=== PATIENT | female | born 1975 | race Caucasian/White ===

== ENCOUNTER → 2020-12-28 | Outpatient (CLI) | payer BC ==
[~2020-12-28] MED LIST: ACET-789 PO; ALPR1TAB2 PO; DOCU100C37 PO; IBUP-1780 PO; TEMA30CA PO
--- NOTE | 2020-12-28 14:52 | Diagnostic Imaging Report ---
INDICATION: Right upper arm pain. FINDINGS: Two views of the right humerus show no fracture or dislocation. IMPRESSION: Negative right humerus. Dictated by: Dictated on workstation # [id number]
--- NOTE | 2020-12-28 14:54 | Diagnostic Imaging Report ---
INDICATION: Right shoulder pain. FINDINGS: Three views of the right shoulder show no fracture, dislocation, or other acute abnormalities. IMPRESSION: Negative right shoulder. Dictated by: Dictated on workstation # [id number]
== END ==
LOC: RAD FS 13:18
PROVIDERS: ATTEND Pediatrics
DX: M25.511 Pain in right shoulder (principal)
CPT/HCPCS: 73030; 73060

== ENCOUNTER 2021-06-14 18:10 | Emergency (ER) | payer BC ==
[~2021-06-14] VITALS: Ht 162.5 cm; Wt 90.0 kg
--- NOTE | 2021-06-14 19:18 | Diagnostic Imaging Report ---
INDICATION: Cough COMPARISON: None. FINDINGS: Frontal and lateral views the chest demonstrate clear lungs bilaterally. The heart size is normal. There is no pneumothorax. Osseous structures are normal. IMPRESSION: No acute findings. Normal chest. Dictated by: Dictated on workstation # [id number]
[2021-06-14 19:22] LABS: HEMATOCRIT 43 % (35-52); HEMOGLOBIN 14.3 G/DL (11.5-16.0); MEAN CORPUSCULAR HEMOGLOBIN 31 PG (25-34); MEAN CORPUSCULAR HGB CONC 34 G/DL (32-36); MEAN CORPUSCULAR VOLUME 93 FL (80-99); MEAN PLATELET VOLUME 9.9 FL (7.4-10.4); PLATELET COUNT 169 10^3/uL (130-400); WHITE BLOOD COUNT 3.5 10^3/uL (4.3-11.0)
[2021-06-14 19:23] LABS: BASOPHILS % (AUTO) 1 % (0-10); EOSINOPHILS % (AUTO) 1 % (0-10); LYMPHOCYTES # (AUTO) 1.2 X 10^3 (1.0-4.0); LYMPHOCYTES % (AUTO) 35 % (12-44); MONOCYTES # (AUTO) 0.4 X 10^3 (0.0-1.0); MONOCYTES % (AUTO) 11 % (0-12); NEUTROPHILS # (AUTO) 1.8 X 10^3 (1.8-7.8); NEUTROPHILS % (AUTO) 53 % (42-75)
[2021-06-14 19:35] LABS: ALANINE AMINOTRANSFERASE 21 U/L (0-55); ALBUMIN 4.6 GM/DL (3.2-4.5); ALKALINE PHOSPHATASE 124 U/L (40-136); BILIRUBIN,TOTAL 0.2 MG/DL (0.1-1.0); BUN/CREATININE RATIO 9; CALCIUM 9.4 MG/DL (8.5-10.1); CARBON DIOXIDE 24 MMOL/L (21-32); CHLORIDE 103 MMOL/L (98-107); CREATININE SERUM 0.78 MG/DL (0.60-1.30); GFR ESTIMATED 79; GLUCOSE 108 MG/DL (70-105); POTASSIUM 4.3 MMOL/L (3.6-5.0); SODIUM 138 MMOL/L (135-145); TOTAL PROTEIN 7.8 GM/DL (6.4-8.2)
[2021-06-14] MEDS ORDERED: NS IV 1000 ML 1,000 ML IV STA (19:49)
[2021-06-14] MEDS ORDERED: IOHEXOL 350 MG/ML 100 ML (OMNIPAQUE 350) VIAL IV ONE (20:00)
[2021-06-14] MEDS ORDERED: NS 100 ML (IVPB) BAG IV ONE (20:00)
[2021-06-14] MEDS ORDERED: HOLD METFORMIN - RECEIVED CONTRAST 20 ML VIAL IV SCH (20:00)
[2021-06-14] MEDS ORDERED: ONDANSETRON 4 MG/2 ML (SDV) Z0FRAN IVP ONE (20:30)
--- NOTE | 2021-06-14 20:36 | Diagnostic Imaging Report ---
PROCEDURE: CT angiography of the chest with contrast. TECHNIQUE: Multiple contiguous axial images were obtained through the chest after uneventful bolus administration of intravenous contrast. 3D reconstructed CTA MIP acquisitions were also performed. Auto Exposure Controls were utilized during the CT exam to meet ALARA standards for radiation dose reduction. INDICATION: Shortness of breath, elevated D-dimer The lungs are clear. There are no effusions or pneumothoraces. There is no right ventricular strain. There are no pulmonary emboli. There is no hilar or mediastinal lymphadenopathy. The aorta is unremarkable. IMPRESSION: Unremarkable CTA chest. Dictated by: Dictated on workstation # [id number]
[2021-06-14] MEDS ORDERED: predniSONE 20 MG TAB PO ONE (20:45)
[2021-06-14] MEDS ORDERED: RX-ALBUTEROL INHALER 8.5 GM HFA (PROAIR) IH STA (20:45)
--- NOTE | 2021-06-14 20:52 | ED Respiratory ---
General Chief Complaint: Cough/Cold/Flu Symptoms Stated Complaint: DIZZY,CHILLS,COUGH Nursing Triage Note: PATIENT PRESENTS TO THE ED WITH C/O COUGH, DIZZINESS, AND SHORTNESS OF BREATH. PATIENT REPORTS SHE TESTED + FOR COVID ON April AND WAS RELEASED FROM [facility]. HER CURRENT SYMPTOMS BEGAN ON May. PATIENT REPORTS SEVERE DIZZINESS WHEN STANDING AND INCREASED CHEST TIGHTNESS WHEN SHE LEANS BACK. Source: patient Exam Limitations: no limitations History of Present Illness Date Seen by Provider: Jun 14, 2021 Time Seen by Provider: 19:00 Initial Comments Here with report of increasing cough and dizziness and shortness of breath. Also notes that she has had diarrhea for several days. She states that she may suffer from irritable bowel syndrome. Notes that anytime that she stands she gets dizzy and feels weaker. Did have Covid infection on May 20 and was released from isolation on 31 May. Notes that she had return of cough over the last few days with the dizziness. Denies chest pain. Does have family history of pulmonary emboli. Denies pain in her legs. Timing/Duration: getting worse, other (Few days) Severity: moderate Prior Episodes/Possible Cause: no prior episodes Modifying Factors: Worse With Activity; Improves With Rest Associated Symptoms: cough; No fever/chills, No nasal congestion; shortness of breath, wheezing Allergies and Home Medications Allergies Coded Allergies: No Known Drug Allergies (Unverified , 01/18/16) Home Medications Acetaminophen with Codeine 1 Each Tablet, 1 EACH PO every 4 hours PRN for when necessary pain Prescribed by: REID FORD on 01/21/16 0809 Alprazolam 1 Mg Tablet, 1 MG PO PRN, (Reported) Docusate Sodium 100 Mg Capsule, 100 MG PO BID Prescribed by: REID FORD on 01/21/16 0809 Ibuprofen 800 Mg Tablet, 800 MG PO Q6HR Prescribed by: REID FORD on 01/21/16 0809 Prednisone 20 Mg Tab, 40 MG PO DAILY Prescribed by: THEO BASS on 06/14/212058 Promethazine HCl/Codeine 473 Ml Syrup, 5 ML PO Q6H PRN for COUGH Prescribed by: THEO BASS on 06/14/212099 Temazepam 30 Mg Capsule, 30 MG PO DAILY, (Reported) Patient Home Medication List Home Medication List Reviewed: Yes Review of Systems Review of Systems Constitutional: see HPI; No chills, No fever EENTM: see HPI Respiratory: see HPI Cardiovascular: No chest pain, No edema Gastrointestinal: diarrhea; No nausea, No vomiting Genitourinary: no symptoms reported : No Musculoskeletal: no symptoms reported Skin: no symptoms reported Psychiatric/Neurological: Denies Headache; Other (Dizziness) All Other Systems Reviewed Negative Unless Noted: Yes Past Qlcjnoy-Tznnkt-Pxasbp Hx Patient Social History Tobacco Use?: No Use of E-Cig and/or Vaping dev: No Substance use?: No Alcohol Use?: Yes Pt feels they are or have been: No Past Medical History Surgeries: Yes Hysterectomy Respiratory: No Cardiac: No Neurological: No Reproductive Disorders: Yes Female Reproductive Disorders: Menstrual Problems HIV/AIDS: No Gastrointestinal: Yes Gastroesophageal Reflux, Irritable Bowel Loss of Vision: Bilateral Psychosocial: Yes Anxiety Adverse Reaction/Blood Tranf: No Family Medical History Reviewed and Corrections made Physical Exam Vital Signs - First Documented 06/14/21 06/14/21 18:15 18:48 Temp 37.1 Pulse 100 Resp 24 B/P (MAP) 135/90 (105) Pulse Ox 96 O2 Delivery Room Air Capillary Refill : Less Than 3 Seconds Height: 5'4.00" Weight: 189lbs. oz. 85.271990ru; 34.00 BMI Method: General Appearance: WD/WN, no apparent distress HEENT: PERRL/EOMI, pharynx normal Neck: full range of motion, supple Respiratory: lungs clear, normal breath sounds Cardiovascular: no murmur, tachycardia Gastrointestinal: soft, tenderness (Upper abdominal musculature that is worse with coughing) Extremities: non-tender, normal inspection, no pedal edema, no calf tenderness Neurologic/Psychiatric: alert, oriented x 3 Skin: normal color, warm/dry Progress/Results/Core Measures Suspected Sepsis SIRS Temperature: Pulse: 100 Respiratory Rate: 24 Laboratory Tests 06/14/21 18:48: White Blood Count 3.5L Blood Pressure 135 /90 Mean: 105 Laboratory Tests 06/14/21 18:48: Creatinine 0.78, Platelet Count 169, Total Bilirubin 0.2 Results/Orders Lab Results Laboratory Tests Test 06/14/21 18:48 Range/Units White Blood Count 3.5 L 4.3-11.0 10^3/uL Red Blood Count 4.55 4.35-5.85 10^6/uL Hemoglobin 14.3 11.5-16.0 G/DL Hematocrit 43 35-52 % Mean Corpuscular Volume 93 80-99 FL Mean Corpuscular Hemoglobin 31 25-34 PG Mean Corpuscular Hemoglobin Concent 34 32-36 G/DL Red Cell Distribution Width 12.7 10.0-14.5 % Platelet Count 169 130-400 10^3/uL Mean Platelet Volume 9.9 7.4-10.4 FL Immature Granulocyte % (Auto) 0 % Neutrophils (%) (Auto) 53 42-75 % Lymphocytes (%) (Auto) 35 12-44 % Monocytes (%) (Auto) 11 0-12 % Eosinophils (%) (Auto) 1 0-10 % Basophils (%) (Auto) 1 0-10 % Neutrophils # (Auto) 1.8 1.8-7.8 X 10^3 Lymphocytes # (Auto) 1.2 1.0-4.0 X 10^3 Monocytes # (Auto) 0.4 0.0-1.0 X 10^3 Eosinophils # (Auto) 0.0 0.0-0.3 10^3/uL Basophils # (Auto) 0.0 0.0-0.1 10^3/uL Immature Granulocyte # (Auto) 0.0 0.0-0.1 10^3/uL D-Dimer 2.39 H 0.00-0.49 UG/ML Sodium Level 138 135-145 MMOL/L Potassium Level 4.3 3.6-5.0 MMOL/L Chloride Level 103 98-107 MMOL/L Carbon Dioxide Level 24 21-32 MMOL/L Anion Gap 11 5-14 MMOL/L Blood Urea Nitrogen 7 7-18 MG/DL Creatinine 0.78 0.60-1.30 MG/DL Estimat Glomerular Filtration Rate 79 BUN/Creatinine Ratio 9 Glucose Level 108 H 70-105 MG/DL Calcium Level 9.4 8.5-10.1 MG/DL Corrected Calcium 8.5-10.1 MG/DL Total Bilirubin 0.2 0.1-1.0 MG/DL Aspartate Amino Transf (AST/SGOT) 28 5-34 U/L Alanine Aminotransferase (ALT/SGPT) 21 0-55 U/L Alkaline Phosphatase 124 40-136 U/L C-Reactive Protein 0.65 H <0.50 MG/DL Total Protein 7.8 6.4-8.2 GM/DL Albumin 4.6 H 3.2-4.5 GM/DL My Orders Orders - THEO BASS MD Ct Angio Chest W (06/14/21 19:49) Ns Iv 1000 Ml (Sodium Chloride 0.9%) (06/14/21 19:49) Ekg Tracing (06/14/21 19:49) Iohexol Injection (Omnipaque 350 Mg/Ml 1 (06/14/21 20:00) Received Contrast (Hold Metformin- Contr (06/14/21 20:00) Ns (Ivpb) (Sodium Chloride 0.9% Ivpb Bag (06/14/21 20:00) Ondansetron Injection (Zofran Injectio (06/14/21 20:30) Prednisone Tablet (Deltasone Tablet) (06/14/21 20:45) Rx-Albuterol Inhaler (Rx-Ventolin Hfa In (06/14/21 20:45) Promethazine/ Codeine Syrup (Phenergan W (06/14/21 21:00) Lactated Ringers (Lr 1000 Ml Iv Solution (06/14/21 21:03) Medications Given in ED Current Medications Medications Dose Ordered Sig/Anila Route Start Time Stop Time Status Last Admin Dose Admin Iohexol 100 ml ONCE ONCE IV 06/14/21 20:00 06/14/21 20:01 DC 06/14/21 20:21 100 ML Ondansetron HCl 4 mg ONCE ONCE IVP 06/14/21 20:30 06/14/21 20:31 DC 06/14/21 20:22 4 MG Prednisone 40 mg ONCE ONCE PO 06/14/21 20:45 06/14/21 20:47 DC 06/14/21 20:53 40 MG Promethazine HCl/ Codeine 5 ml ONCE ONCE PO 06/14/21 21:00 06/14/21 21:01 DC 06/14/21 21:49 5 ML Sodium Chloride 100 ml ONCE ONCE IV 06/14/21 20:00 06/14/21 20:01 DC 06/14/21 20:21 80 ML Vital Signs/I&O 06/14/21 06/14/21 06/14/21 18:15 18:48 21:00 Temp 37.1 Pulse 100 75 84 99 Resp 24 B/P (MAP) 135/90 (105) 108/49 (68) 134/90 (105) 139/91 (107) Pulse Ox 96 O2 Delivery Room Air Room Air Capillary Refill : Less Than 3 Seconds Blood Pressure Mean: 105 Progress Note : Progress Note Seen and evaluated. IV, labs and chest x-ray ordered. LR 1 L bolus. Monitor patient. Chest x-ray is clear but D-dimer is elevated. In the setting of tachycardia and shortness of breath, CT angiogram of the chest indicated. This was ordered. 2052: CT angiogram negative for acute pulmonary emboli. Heart rate has improved with fluids. We will recheck orthostatics after fluid complete. Prednisone 40 mg p.o. for reactive lung disease. Albuterol inhaler given with teaching. Monitor patient. We will give Phenergan with codeine cough syrup for cough. 11/30/2003: Remains orthostatic but improved. Heart rate now around 100 with standing versus 130. We will repeat LR 1 L bolus and then discharged home. This was discussed with patient and family who agree with plan. 2149: Overall doing much better. Discharged home with return precautions. Patient verbalized understanding of instructions and agreement with plan. ECG Initial ECG Impression Date: Jun 14, 2021 Initial ECG Impression Time: 19:54 Initial ECG Rate: 95 Initial ECG Rhythm: Normal Sinus Comment Sinus rhythm with artifact and tachycardia. Normal axis. No evidence of ST elevation ND. No previous available for comparison. Interpreted by me. Diagnostic Imaging Diagonstic Imaging: Xray Plain Films/CT/US/NM/MRI: chest Comments [email or web address] [place], [place] NAME: SHAYNA NAVARRO [facility] REC#: [id number] PT STATUS: REG ER : 1975 PHYSICIAN: RAFAEL BENEDICT MD ADMIT DATE: 06/14/21/ER FS Signed Date of Exam:06/14/21 CHEST PA/LAT (2 VIEW) INDICATION: Cough COMPARISON: None. FINDINGS: Frontal and lateral views the chest demonstrate clear lungs bilaterally. The heart size is normal. There is no pneumothorax. Osseous structures are normal. IMPRESSION: No acute findings. Normal chest. Dictated by: Dictated on workstation # [id number] Dict: 06/14/211915 Trans: 06/14/211916 [facility] [id number] Interpreted by: PATRICK MA Electronically signed by: PATRICK MA 06/14/211916 Diagonstic Imaging: CT Plain Films/CT/US/NM/MRI: chest Comments [facility] [place] [place] NAME: SHAYNA NAVARRO [facility] REC#: [id number] PT STATUS: REG ER : 1975 PHYSICIAN: THEO BASS MD ADMIT DATE: 06/14/21/ER FS Draft Date of Exam:06/14/21 CT ANGIO CHEST W PROCEDURE: CT angiography of the chest with contrast. TECHNIQUE: Multiple contiguous axial images were obtained through the chest after uneventful bolus administration of intravenous contrast. 3D reconstructed CTA MIP acquisitions were also performed. Auto Exposure Controls were utilized during the CT exam to meet ALARA standards for radiation dose reduction. INDICATION: Shortness of breath, elevated D-dimer The lungs are clear. There are no effusions or pneumothoraces. There is no right ventricular strain. There are no pulmonary emboli. There is no hilar or mediastinal lymphadenopathy. The aorta is unremarkable. IMPRESSION: Unremarkable CTA chest. Dictated on workstation # [id number] Dict: 06/14/212032 Trans: 06/14/212035 [facility] [id number] Interpreted by: THEO LOW MD Electronically signed by: Departure Impression Primary Impression: Reactive airway disease Qualified Codes: J45.21 - Mild intermittent asthma with (acute) exacerbation Additional Impressions: Diarrhea Qualified Codes: R19.7 - Diarrhea, unspecified Dehydration Disposition: HOME, SELF-CARE Condition: Stable Departure-Patient Inst. Decision time for Depature: 21:01 Referrals: ALEXANDRA CROOKS MD (PCP/Family) Primary Care Physician Patient Instructions: Acute Bronchitis, Adult (DC), Dehydration, Adult ED, Diarrhea in Adolescents and Adults, Inhalers Add. Discharge Instructions: All discharge instructions reviewed with patient and/or family. Voiced understanding. Take medications as directed. You should take the steroids earlier in the day as they may keep you up at nighttime. Use inhaler as needed 2 puffs every 4-6 hours as needed for wheezing or cough. Drink plenty of fluids. Get some rest. Follow-up with your doctor for recheck and further evaluation and to discuss your concerns related to irritable bowel syndrome. It would be prudent to evaluate that further with colonoscopy. Discuss this with your doctor. Return for worse pain, fever, vomiting, weakness, breathing problems or other concerns as needed. Scripts Promethazine HCl/Codeine (Promethazine-Codeine Solution) 473 Ml Syrup 5 ML PO Q6H PRN for COUGH, #120 ML 0 Refills Prov: THEO BASS MD 06/14/21 Prednisone (Prednisone) 20 Mg Tab 40 MG PO DAILY, #8 TAB 0 Refills Prov: THEO BASS MD 06/14/21 Work/School Note: Work Release Form Date Seen in the Emergency Department: Jun 14, 2021 Return to Work: Jun 17, 2021 Restrictions: No Restrictions Copy Copies To 1: ALEXANDRA CROOKS MD, TIMOTHY D MD Jun 14, 2021 20:52
[2021-06-14] MEDS ORDERED: PRD20T PO (20:59)
[2021-06-14] MEDS ORDERED: PROM473S9 PO (20:59)
[2021-06-14 21:00] VITALS: BP_SYST 108; BP_SYST 134; BP_SYST 139; BP_DIAS 49; BP_DIAS 90; BP_DIAS 91
[2021-06-14] MEDS ORDERED: PROMETHAZINE/ CODEINE SYRUP 5 ML UDC PO ONE (21:00)
[2021-06-14] MEDS ORDERED: LACTATED RINGERS 1,000 ML IV STA (21:03)
[2021-06-14 21:54] VITALS: BP 120/80
== END 2021-06-14 21:54 | disposition home or self-care (01) ==
LOC: EDUNIT# 18:10 → ER FS 18:12
DX: J45.909 Unspecified asthma, uncomplicated (principal); R19.7 Diarrhea, unspecified; E86.0 Dehydration; F41.9 Anxiety disorder, unspecified; Z79.899 Other long term (current) drug therapy
CPT/HCPCS: 36415; 71046; 71275; 80053; 85025; 85379; 86141; 93005; 96361; 96374

== ENCOUNTER 2021-06-19 14:11 | Emergency (ER) | payer BC ==
[~2021-06-19] VITALS: Ht 162.6 cm; Wt 90.7 kg
[~2021-06-19 14:11] MED LIST changes: +PRD20T PO; +PROM473S9 PO
[2021-06-19 14:45] LABS: BASOPHILS % (AUTO) 0 % (0-10); EOSINOPHILS % (AUTO) 0 % (0-10); HEMATOCRIT 41 % (35-52); HEMOGLOBIN 14.3 g/dL (11.5-16.0); LYMPHOCYTES # (AUTO) 0.9 X 10^3 (1.0-4.0); LYMPHOCYTES % (AUTO) 19 % (12-44); MEAN CORPUSCULAR HEMOGLOBIN 32 pg (25-34); MEAN CORPUSCULAR HGB CONC 35 g/dL (32-36); MEAN CORPUSCULAR VOLUME 92 fL (80-99); MEAN PLATELET VOLUME 9.8 fL (9.0-12.2); MONOCYTES # (AUTO) 0.2 X 10^3 (0.0-1.0); MONOCYTES % (AUTO) 3 % (0-12); NEUTROPHILS # (AUTO) 3.5 X 10^3 (1.8-7.8); NEUTROPHILS % (AUTO) 77 % (42-75); PLATELET COUNT 127 10^3/uL (130-400); WHITE BLOOD COUNT 4.5 10^3/uL (4.3-11.0)
[2021-06-19] MEDS ORDERED: NS IV 1000 ML 1,000 ML IV SCH (14:45)
[2021-06-19] MEDS ORDERED: ONDANSETRON 4 MG/2 ML (SDV) Z0FRAN IV ONE (14:45)
--- NOTE | 2021-06-19 14:55 | ED General ---
General Chief Complaint: Respiratory Problems Stated Complaint: VOMITING; DIZZINESS; SOB Nursing Triage Note: Patient reports she tested positive for COVID-19 on May 20, states she had no symptoms then other than some fatigue. She states she began having cough, nausea, vomiting, diarrhea, fever, chills, and dizziness one week ago. She states she was seen in the ED on Monday of this week, had a negative CTA chest, bloodwork and received 2 liters of IV fluids. She reports her symptoms have not improved. Source of Information: Patient, Old Records History of Present Illness Date Seen by Provider: Jun 19, 2021 Time Seen by Provider: 14:14 Initial Comments 46 yo female presenting with continued cough, short of breath, nausea, dry heaves, diarrhea. She finished her course of steroids from when she was seen on MondayJune 14. She continues to have symptoms throughout the week but did not call or check with her primary provider, Dr. Alexandra Crooks in [place]. She returns today with complaints of not feeling better and continued symptoms of dry heaves, nausea, diarrhea. She has dry non productive cough. She has had fever and chills with dizziness with changing positions. She had a work up in this ED MondayJune 14 that showed she was dehydrated but had negative CT Angiogram of chest. She had some improvement after 2 Liters of IVF and IV Zofran in the ED. Was discharged with phenergan with codeine for her cough, steroid burst and counseled about asthma and need to check with PCP for possible colonoscopy about diarrhea. Allergies and Home Medications Allergies Coded Allergies: No Known Drug Allergies (Unverified , 01/18/16) Home Medications Acetaminophen with Codeine 1 Each Tablet, 1 EACH PO every 4 hours PRN for when necessary pain Prescribed by: REID FORD on 01/21/16 0809 Alprazolam 1 Mg Tablet, 1 MG PO PRN, (Reported) Dicyclomine HCl 20 Mg Tablet, 20 MG PO QID PRN for diarrhea/abdominal cramping Prescribed by: STAN HOLLEY on 06/19/21 170 Docusate Sodium 100 Mg Capsule, 100 MG PO BID Prescribed by: REID FORD on 01/21/16 0809 Ibuprofen 800 Mg Tablet, 800 MG PO Q6HR Prescribed by: REID FORD on 01/21/16 0809 Ondansetron 4 Mg Tab.rapdis, 4 MG PO Q6H PRN for NAUSEA/VOMITING Prescribed by: STAN HOLLEY on 06/19/21 170 Prednisone 20 Mg Tab, 40 MG PO DAILY Prescribed by: THEO BASS on 06/14/212058 Promethazine HCl/Codeine 473 Ml Syrup, 5 ML PO Q6H PRN for COUGH Prescribed by: THEO BASS on 06/14/212099 Temazepam 30 Mg Capsule, 30 MG PO DAILY, (Reported) Patient Home Medication List Home Medication List Reviewed: Yes Review of Systems Review of Systems Constitutional: chills, dizziness, fever, malaise EENTM: no symptoms reported Respiratory: cough, short of breath Cardiovascular: No chest pain Gastrointestinal: abdominal pain (abdominal wall pain from cough and dry heaves), diarrhea, loss of appetite, nausea, vomiting (dry heaves) Genitourinary: decreased output; No dysuria Musculoskeletal: muscle pain (generalized muscle and body aches/pains) Skin: no symptoms reported Psychiatric/Neurological: Denies Headache; Weakness (general) Past Cbwaqcq-Zudbhh-Tfiate Hx Patient Social History Tobacco Use?: No Substance use?: No Alcohol Use?: Yes Alcohol Frequency: Once in a while Past Medical History Surgeries: Yes Hysterectomy Respiratory: No Cardiac: No Neurological: No Reproductive Disorders: Yes Female Reproductive Disorders: Menstrual Problems HIV/AIDS: No Gastrointestinal: Yes Gastroesophageal Reflux, Irritable Bowel Loss of Vision: Bilateral Psychosocial: Yes Anxiety Adverse Reaction/Blood Tranf: No Physical Exam Vital Signs Vital Signs - First Documented 06/19/21 14:28 Temp 36.3 Pulse 91 Resp 18 B/P (MAP) 124/77 (93) Pulse Ox 94 O2 Delivery Room Air Capillary Refill : Less Than 3 Seconds Height, Weight, BMI Height: 5'4.00" Weight: 189lbs. oz. 85.568692no; 34.00 BMI Method: General Appearance: WD/WN, Mild Distress (appears to not feel well), Obese HEENT: PERRL/EOMI, Moist Mucous Membranes Neck: Full Range of Motion, Normal Inspection, Non Tender, Supple Respiratory: Lungs Clear, Normal Breath Sounds, No Accessory Muscle Use, No Respiratory Distress Cardiovascular: Regular Rate, Rhythm, Normal Peripheral Pulses Gastrointestinal: Normal Bowel Sounds, No Pulsatile Mass, Soft; No Distended, No Guarding, No Rebound; Tenderness (diffuse mild tenderness to palpation) Rectal: Deferred Extremity: Normal Capillary Refill, No Pedal Edema Neurologic/Psychiatric: Alert, Oriented x3, No Motor/Sensory Deficits, insurance sales executive II- XII Norm as Tested Skin: Normal Color, Warm/Dry Focused Exam Lactate Level 06/19/21 14:37: Lactic Acid Level 0.94 Lactic Acid Level Laboratory Tests Test 06/19/21 14:37 Lactic Acid Level 0.94 MMOL/L (0.50-2.00) Progress/Results/Core Measures Suspected Sepsis SIRS Temperature: Pulse: 91 Respiratory Rate: 18 Laboratory Tests 06/19/21 14:37: White Blood Count 4.5 Blood Pressure 124 /77 Mean: 93 06/19/21 14:37: Lactic Acid Level 0.94 Laboratory Tests 06/19/21 14:37: Creatinine 0.79, INR Comment 1.0, Platelet Count 127L, Total Bilirubin 0.5 Results/Orders Lab Results Laboratory Tests Test 06/19/21 14:37 06/19/21 15:54 Range/Units White Blood Count 4.5 4.3-11.0 10^3/uL Red Blood Count 4.50 3.80-5.11 10^6/uL Hemoglobin 14.3 11.5-16.0 g/dL Hematocrit 41 35-52 % Mean Corpuscular Volume 92 80-99 fL Mean Corpuscular Hemoglobin 32 25-34 pg Mean Corpuscular Hemoglobin Concent 35 32-36 g/dL Red Cell Distribution Width 12.2 10.0-14.5 % Platelet Count 127 L 130-400 10^3/uL Mean Platelet Volume 9.8 9.0-12.2 fL Immature Granulocyte % (Auto) 0 % Neutrophils (%) (Auto) 77 H 42-75 % Lymphocytes (%) (Auto) 19 12-44 % Monocytes (%) (Auto) 3 0-12 % Eosinophils (%) (Auto) 0 0-10 % Basophils (%) (Auto) 0 0-10 % Neutrophils # (Auto) 3.5 1.8-7.8 X 10^3 Lymphocytes # (Auto) 0.9 L 1.0-4.0 X 10^3 Monocytes # (Auto) 0.2 0.0-1.0 X 10^3 Eosinophils # (Auto) 0.0 0.0-0.3 10^3/uL Basophils # (Auto) 0.0 0.0-0.1 10^3/uL Immature Granulocyte # (Auto) 0.0 0.0-0.1 10^3/uL Percent Immature Platelet Fraction 1.9 0.0-7.6 % Prothrombin Time 13.8 12.2-14.7 SEC INR Comment 1.0 0.8-1.4 Activated Partial Thromboplast Time 36 H 24-35 SEC Sodium Level 134 L 135-145 MMOL/L Potassium Level 3.2 L 3.6-5.0 MMOL/L Chloride Level 96 L 98-107 MMOL/L Carbon Dioxide Level 26 21-32 MMOL/L Anion Gap 12 5-14 MMOL/L Blood Urea Nitrogen 9 7-18 MG/DL Creatinine 0.79 0.60-1.30 MG/DL Estimat Glomerular Filtration Rate 78 BUN/Creatinine Ratio 11 Glucose Level 111 H 70-105 MG/DL Lactic Acid Level 0.94 0.50-2.00 MMOL/L Calcium Level 8.9 8.5-10.1 MG/DL Corrected Calcium 8.8 8.5-10.1 MG/DL Total Bilirubin 0.5 0.1-1.0 MG/DL Aspartate Amino Transf (AST/SGOT) 25 5-34 U/L Alanine Aminotransferase (ALT/SGPT) 19 0-55 U/L Alkaline Phosphatase 101 40-136 U/L Troponin I < 0.30 <0.30 NG/ML C-Reactive Protein 6.99 H <0.50 MG/DL Total Protein 7.6 6.4-8.2 GM/DL Albumin 4.1 3.2-4.5 GM/DL Lipase 36 8-78 U/L Urine Color YELLOW Urine Clarity CLEAR Urine pH 6.0 5-9 Urine Specific Bynum 1.015 L 1.016-1.022 Urine Protein NEGATIVE NEGATIVE Urine Glucose (UA) NEGATIVE NEGATIVE Urine Ketones NEGATIVE NEGATIVE Urine Nitrite NEGATIVE NEGATIVE Urine Bilirubin NEGATIVE NEGATIVE Urine Urobilinogen 0.2 < = 1.0 MG/DL Urine Leukocyte Esterase NEGATIVE NEGATIVE Urine RBC (Auto) NEGATIVE NEGATIVE Urine RBC NONE /HPF Urine WBC 5-10 H /HPF Urine Squamous Epithelial Cells 5-10 /HPF Urine Crystals NONE /LPF Urine Bacteria FEW H /HPF Urine Casts PRESENT /LPF Urine Coarse Granular Casts 2-5 H /LPF Urine Mucus SMALL H /LPF Urine Other /HPF Urine Culture Indicated YES My Orders Orders - STAN HOLLEY MD Monitor-Rhythm Ecg Trace Only (06/19/21 14:35) Ed Iv/Invasive Line Start (06/19/21 14:35) Cbc With Automated Diff (06/19/21 14:35) Comprehensive Metabolic Panel (06/19/21 14:35) Crp Fs (06/19/21 14:35) Troponin I Fs (06/19/21 14:35) Lactic Acid Analyzer (06/19/21 14:35) Protime With Inr (06/19/21 14:35) Partial Thromboplastin Time (06/19/21 14:35) Ekg Tracing (06/19/21 14:35) Ns Iv 1000 Ml (Sodium Chloride 0.9%) (06/19/21 14:45) Ondansetron Injection (Zofran Injectio (06/19/21 14:45) Lipase (06/19/21 14:35) Ua Culture If Indicated (06/19/21 14:35) Stool Culture (06/19/21 14:35) Fecal Wbc (06/19/21 14:35) C Difficile Ag + Toxin A/B. (06/19/21 14:35) Isolation Central Supply Req (06/19/21 14:35) Chest 1 View Ap/Pa Only (06/19/21 14:38) Lactated Ringers (Lr 1000 Ml Iv Solution (06/19/21 15:50) Urine Culture (06/19/21 15:54) Medications Given in ED Current Medications Medications Dose Ordered Sig/Anila Route Start Time Stop Time Status Last Admin Dose Admin Ondansetron HCl 4 mg ONCE ONCE IV 06/19/21 14:45 06/19/21 14:46 DC 06/19/21 14:46 4 MG Vital Signs/I&O 06/19/21 06/19/21 14:28 17:20 Temp 36.3 Pulse 91 70 Resp 18 16 B/P (MAP) 124/77 (93) 113/63 Pulse Ox 94 94 O2 Delivery Room Air Room Air Capillary Refill : Less Than 3 Seconds Blood Pressure Mean: 93 Progress Note #1: Progress Note Will recheck labs and compare to Monday. If she has diarrhea will send stool for studies. Check UA as well. Give IVF for hydration, Zofran for nausea. Progress Note #2: Progress Note Labs appear stable with no acute significant normality. She has mild hypokalemia with potassium of 3.2. Her lactic acid is normal at 0.94. She has a white count of 4.5. Her CXR is clear of acute process. After a liter of NS she was able to provide a urine sample and this did not show severe dehydration. She had some bacteria so a urine culture was reflexed. Ordered a Liter of LR and will recheck on patient. Progress Note #3: Progress Note After the second liter of fluids infused patient continues to be stable. Her symptoms were a little better after treatment in the ED. She has had no drug use here in the ED. Will discharge on Zofran and Bentyl. Encouraged to check back with the clinic for continued symptoms. Try to advance her diet and make sure she is drinking electrolyte drinks while using nausea medication. ECG Initial ECG Impression Date: Jun 19, 2021 Initial ECG Impression Time: 14:27 Initial ECG Rate: 85 Initial ECG Rhythm: Normal Sinus Initial ECG Comparisson: Unchanged Comment Normal sinus rhythm with heart rate 85 bpm. HI interval 147 ms. Low voltage in the precordial leads. T wave flattening throughout. There is artifact with motion on the tracing. Prolonged QT interval at 467 ms and QTc interval 556 ms. Appears similar to tracing from June 14. There is no acute ST elevation. Diagnostic Imaging Diagonstic Imaging: Xray Plain Films/CT/US/NM/MRI: chest Comments NAME: SHAYNA NAVARRO [facility] REC#: [id number] PT STATUS: REG ER : 1975 PHYSICIAN: STAN HOLLEY MD ADMIT DATE: 06/19/21/ER FS Draft Date of Exam:06/19/21 CHEST 1 VIEW AP/PA ONLY INDICATION: Vomiting, dizziness and shortness of breath. TIME OF EXAM: 2:40 PM COMPARISON: Prior chest from 06/14/2021. The heart size is normal. The pulmonary vascularity is unremarkable. The lungs are clear. No infiltrate, effusion or pneumothorax is detected. IMPRESSION: No acute cardiopulmonary process is detected. Dictated on workstation # [id number] Dict: 06/19/21 1521 Trans: 06/19/21 1525 [facility] [id number] Interpreted by: LG MCNEAL MD Electronically signed by: Reviewed: Reviewed by Me Departure Impression Primary Impression: Diarrhea Qualified Codes: R19.7 - Diarrhea, unspecified Additional Impressions: Dehydration Nausea Dry heaves Post-acute sequelae of SARS-CoV-2 infection Disposition: 01 HOME, SELF-CARE Condition: Stable Departure-Patient Inst. Decision time for Depature: 17:03 Referrals: ALEXANDRA CROOKS MD (PCP/Family) Primary Care Physician Patient Instructions: Recovery After COVID-19, Nausea and Vomiting, Adult ED, Dehydration, Adult ED, Diarrhea, Adult ED Add. Discharge Instructions: Take the nausea medicine to keep your stomach settled so you can eat and drink better. Try taking Mucinex to help loosen your cough. Trying Pedialyte and electrolyte drinks to help with hydration. Try advancing to bland diet as you tolerate it with the nausea medicine helping to control your upset stomach. Check back with Dr. Crooks in clinic for continued or worsening symptoms. All discharge instructions reviewed with patient and/or family. Voiced understanding. Scripts Dicyclomine HCl (Dicyclomine HCl) 20 Mg Tablet 20 MG PO QID PRN for diarrhea/abdominal cramping for 7 Days, #28 TAB 0 Refills Prov: STAN HOLLEY MD 06/19/21 Ondansetron (Ondansetron Odt) 4 Mg Tab.rapdis 4 MG PO Q6H PRN for NAUSEA/VOMITING for 5 Days, #20 TAB 0 Refills Prov: STAN HOLLEY MD 06/19/21 Work/School Note: Work Release Form Date Seen in the Emergency Department: Jun 19, 2021 Return to Work: Jun 25, 2021 Restrictions: Need Release from Doctor STAN HOLLEY MD Jun 19, 2021 14:55
[2021-06-19 14:58] LABS: PROTHROMBIN TIME PATIENT 13.8 SEC (12.2-14.7)
[2021-06-19 15:03] LABS: ALANINE AMINOTRANSFERASE 19 U/L (0-55); ALBUMIN 4.1 GM/DL (3.2-4.5); ALKALINE PHOSPHATASE 101 U/L (40-136); BILIRUBIN,TOTAL 0.5 MG/DL (0.1-1.0); BUN/CREATININE RATIO 11; CALCIUM 8.9 MG/DL (8.5-10.1); CARBON DIOXIDE 26 MMOL/L (21-32); CHLORIDE 96 MMOL/L (98-107); CREATININE SERUM 0.79 MG/DL (0.60-1.30); GFR ESTIMATED 78; GLUCOSE 111 MG/DL (70-105); POTASSIUM 3.2 MMOL/L (3.6-5.0); SODIUM 134 MMOL/L (135-145); TOTAL PROTEIN 7.6 GM/DL (6.4-8.2)
--- NOTE | 2021-06-19 15:25 | Diagnostic Imaging Report ---
INDICATION: Vomiting, dizziness and shortness of breath. TIME OF EXAM: 2:40 PM COMPARISON: Prior chest from 06/14/2021. The heart size is normal. The pulmonary vascularity is unremarkable. The lungs are clear. No infiltrate, effusion or pneumothorax is detected. IMPRESSION: No acute cardiopulmonary process is detected. Dictated by: Dictated on workstation # [id number]
[2021-06-19] MEDS ORDERED: LACTATED RINGERS 1,000 ML IV STA (15:50)
[2021-06-19 16:12] LABS: BACTERIA,URINE FEW /HPF; BILIRUBIN,URINE NEGATIVE (NEGATIVE); CLARITY,URINE CLEAR; COLOR,URINE YELLOW; GLUCOSE, URINE (UA) NEGATIVE (NEGATIVE); KETONES,URINE NEGATIVE (NEGATIVE); LEUKOCYTE ESTERASE ,URINE NEGATIVE (NEGATIVE); NITRITE,URINE NEGATIVE (NEGATIVE); PROTEIN,URINE NEGATIVE (NEGATIVE)
[2021-06-19] MEDS ORDERED: DICY20TA10 PO (17:03)
[2021-06-19] MEDS ORDERED: ONDA4TAB11 PO (17:03)
[2021-06-19 17:20] VITALS: BP 113/63
== END 2021-06-19 17:20 | disposition home or self-care (01) ==
LOC: EDUNIT# 14:11 → ER FS 14:13
DX: R19.7 Diarrhea, unspecified (principal); E86.0 Dehydration; R11.0 Nausea; R19.8 Other specified symptoms and signs involving the digestive system and abdomen; E66.9 Obesity, unspecified; F41.9 Anxiety disorder, unspecified; Z68.34 Body mass index [BMI] 34.0-34.9, adult; Z79.899 Other long term (current) drug therapy; Z79.52 Long term (current) use of systemic steroids
CPT/HCPCS: 36415; 71045; 80053; 81000; 83605; 83690; 84484; 85025; 85610; 85730; 86141; 87088; 93005; 93041